=== PATIENT | male | born 1985 | race Caucasian/White ===

== ENCOUNTER → 2016-08-24 | Outpatient (CLI) | payer BC ==
[~2016-08-24] MED LIST: LISD70CA PO
--- NOTE | 2016-08-24 11:44 | DIAGNOSTIC IMAGING REPORT ---
TWO VIEW CHEST CLINICAL HISTORY: Right chest wall pain. Soccer injury. FINDINGS: PA and lateral chest radiographs are obtained. No prior studies are available for comparison at the time of dictation. The cardiomediastinal silhouette is unremarkable. The lungs and pleural spaces are clear. There is no pneumothorax. The bony thorax appears intact. There is no radiographic evidence of distracted rib fracture. IMPRESSION: No active disease in the chest. Electronically signed by: Daniel Myers M.D. 08/24/2016 11:42 AM Dictated Date/Time: 08/24/2016 11:41 AM
== END | disposition home or self-care (01) ==
LOC: C.RAD 11:02
PROVIDERS: ATTEND Emergency Medicine
DX: R07.9 Chest pain, unspecified (principal)